=== PATIENT | female | born 1970 | race Caucasian/White ===

== ENCOUNTER 2017-01-23 09:16 | Observation (INO) | payer BC ==
[2017-01-23] MEDS ORDERED: ASPIRIN 81 MG CHEW PO STA (09:33)
[2017-01-23] MEDS ORDERED: NITROGLYCERIN SL TABS 0.4 MG TAB SUBLINGUAL STA (09:33)
--- NOTE | 2017-01-23 09:37 | ED ---
Chest Pain HPI - General Chief Complaint: Chest Pain Stated Complaint: Chest pressure Time Seen by Provider: 01/23/17 09:22 Source: patient, RN/MD, RN notes reviewed, old records reviewed Mode of arrival: ambulatory Limitations: no limitations - History of Present Illness Initial Comments: This is a 46-year-old female with a history of appendectomy and hysterectomy who is also a one half pack a day smoker who presents with complaints of left- sided chest pain radiates from her back of her neck. States it feels tight pressure-like currently is 5/10 severity was as severe as 8/10. It started this morning around 07:30- 07:45. She also relates that she was admitted to [facility] 3 days ago for evaluation for chest pain which she states he never came to conclusion and actually did not tolerate anything she saw her doctor yesterday EKG was done and [facility] was inconclusive. She is here today for further evaluation. She did no fevers chills cough or phlegm production no other symptoms to report. She liters a family history of her dad having some type of heart disease no other family history reported no history of blood clots. MD Complaint: chest pain - Related Data Home Medications Medication Instructions Recorded Confirmed Aspirin 81 mg PO DAILY 01/23/17 01/23/17 Allergies Allergy/AdvReac Type Severity Reaction Status Date / Time Quinolones Allergy Anaphylaxis Verified 01/23/17 09:54 Review of Systems ROS Statement: Those systems with pertinent positive or pertinent negative responses have been documented in the HPI. ROS Other: All systems not noted in ROS Statement are negative. EKG Findings - EKG Results: EKG: interpreted by ERMD, normal axis, normal QRS, normal ST/T, no acute changes (EKG shows a normal sinus rhythm of 70 to a SD interval of 150 to QRS of 76 daily since QTC of 376/411. ST-T wave changes systems appear to be a normal EKG.) Past Medical History Past Medical History: Chest Pain / Angina Additional Past Medical History / Comment(s): hypoglycemia History of Any Multi-Drug Resistant Organisms: None Reported Past Surgical History: Appendectomy, Hysterectomy Past Psychological History: Anxiety, Depression Smoking Status: Current every day smoker Past Alcohol Use History: Occasional Past Drug Use History: None Reported General Exam - General Exam Comments Initial Comments: This is a well-developed well-nourished awake alert oriented 3 female Limitations: no limitations General appearance: alert, anxious Head exam: Present: atraumatic, normocephalic, normal inspection Eye exam: Present: normal appearance, PERRL, EOMI. Absent: scleral icterus, conjunctival injection, periorbital swelling ENT exam: Present: normal exam, mucous membranes moist Neck exam: Present: normal inspection. Absent: tenderness, meningismus, lymphadenopathy Respiratory exam: Present: normal lung sounds bilaterally. Absent: respiratory distress, wheezes, rales, rhonchi, stridor Cardiovascular Exam: Present: regular rate, normal rhythm, normal heart sounds. Absent: systolic murmur, diastolic murmur, rubs, gallop, clicks GI/Abdominal exam: Present: soft, normal bowel sounds. Absent: distended, tenderness, guarding, rebound, rigid Extremities exam: Present: normal inspection, full ROM, normal capillary refill. Absent: tenderness, pedal edema, joint swelling, calf tenderness Back exam: Present: normal inspection Neurological exam: Present: alert, oriented X3, CN II-XII intact Psychiatric exam: Present: normal affect, normal mood Skin exam: Present: warm, dry, intact, normal color. Absent: rash Course Vital Signs 01/23/17 01/23/17 09:18 10:19 Temperature 98.1 F Pulse Rate 83 64 Respiratory 20 18 Rate Blood Pressure 126/74 103/66 O2 Sat by Pulse 99 100 Oximetry - Reevaluation(s) Reevaluation #1: 01/23/17 10:08 The patient states she had relief of her pain is down to 1/10 after nitroglycerin and aspirin. She further states that when she was having pain and presented to [facility] she also had associated shortness of breath with it. Chest Pain MDM - MDM I reviewed the xr no acute changes. I did discuss the findings with the pt and her daughter, she will be admitted for further evaluation Disposition Clinical Impression: Unstable angina pectoris, Chest pain Disposition: ADMITTED IP TO THIS HOSP Condition: Stable Referrals: Faye Hartmann MD [Primary Care Provider] - 1-2 days
[2017-01-23 09:56] LABS: Aty Lym Flag Slight; CH 31.3; CHCM 33.7; HCT 44.9 % (34.0-46.0); HDW 2.56; HGB 15.7 gm/dL (11.4-16.0); MCH 32.6 pg (25.0-35.0); MCHC 34.9 g/dL (31.0-37.0); MCV 93.3 fL (80.0-100.0); Mean Platelet Volume 7.7; RBC 4.81 m/uL (3.80-5.40); RDW 12.3 % (11.5-15.5); WBC 9.4 k/uL (3.8-10.6); WBC (Perox) 9.27
--- NOTE | 2017-01-23 10:00 | XR ---
EXAMINATION TYPE: XR chest 2V DATE OF EXAM: 01/23/2017 COMPARISON: 06/01/2016 HISTORY: 46-year-old female with chest pain TECHNIQUE: PA and lateral views FINDINGS: The cardiomediastinal silhouette, aorta, and pulmonary vasculature are within normal limits. Redemons trated biapical pleural parenchymal scarring. Strandy areas of atelectasis and scarring in the lower lungs. No consolidation or pleural effusion. IMPRESSION: Chronic changes without acute cardiopulmonary process.
[2017-01-23] MEDS ORDERED: NITROGLYCERIN OINT 1 INCH/GM PACKET TOPICAL STA (10:04)
[2017-01-23 10:08] LABS: ALT 27 U/L (9-52); AST 23 U/L (14-36); Alkaline Phosphatase 84 U/L (38-126); Anion Gap 11 mmol/L; Blood Urea Nitrogen 11 mg/dL (7-17); Calcium 10.2 mg/dL (8.4-10.2); Carbon Dioxide 27 mmol/L (22-30); Chloride 106 mmol/L (98-107); Glucose 91 mg/dL (74-99); Magnesium 1.9 mg/dL (1.6-2.3); Non-African American GFR(MDRD) >60 (>60 ml/min/1.73 sqM); Potassium 5.1 mmol/L (3.5-5.1); Sodium 144 mmol/L (137-145); Total Bilirubin 0.7 mg/dL (0.2-1.3); Total Protein 7.6 g/dL (6.3-8.2)
[2017-01-23 10:10] LABS: INR 1.1 (<1.1); Partial Thromboplastin Time 23.8 sec (22.0-30.0); Prothrombin Time 10.8 sec (9.0-12.0)
[2017-01-23 10:20] LABS: Creatine Kinase 34 U/L (30-135)
[2017-01-23 10:25] LABS: Add Differential Manual Differential
[2017-01-23 10:27] LABS: Manual Review Performed; Nucleated Red Blood Cells 0 /100 WBC (0-0); Total Cells Counted 100
[2017-01-23 10:28] LABS: RBC Morphology Normal
[2017-01-23 10:34] LABS: Creatine Kinase MB 0.2 ng/mL (0.0-2.4); Troponin I <0.012 ng/mL (0.000-0.034)
[2017-01-23] MEDS ORDERED: HEPARIN SODIUM,PORCINE 5,000 UNIT/ML 1 ML VIAL IV ONE (11:12)
[2017-01-23] MEDS ORDERED: NITROGLYCERIN SL TABS 0.4 MG TAB SUBLINGUAL PRN (11:12)
[2017-01-23] MEDS ORDERED: NICOTINE 14MG/24HR PATCH TRANSDERM STA (11:15)
[2017-01-23] MEDS ORDERED: HEPARIN SODIUM,PORCINE/D5W PMX 25,000 UNIT in DEXTROSE/WATER 1 500ML.BAG IV SCH (11:15)
[2017-01-23] MEDS: SODIUM CHLORIDE 0.9% 1,000 ML IV SCH (11:37)
[2017-01-23 17:05] LABS: Creatine Kinase 38 U/L (30-135)
[2017-01-23 17:18] LABS: Creatine Kinase MB 0.2 ng/mL (0.0-2.4); Troponin I <0.012 ng/mL (0.000-0.034)
[2017-01-23] MEDS ORDERED: ACETAMINOPHEN TAB 500 MG TAB PO PRN (17:44)
[2017-01-23] MEDS: NITROGLYCERIN OINT 1 INCH/GM PACKET TOPICAL SCH (17:53)
[2017-01-23 21:32] LABS: Creatine Kinase 83 U/L (30-135)
[2017-01-23 21:46] LABS: Creatine Kinase MB 0.9 ng/mL (0.0-2.4); Troponin I <0.012 ng/mL (0.000-0.034)
[2017-01-24] MEDS: NITROGLYCERIN OINT 1 INCH/GM PACKET TOPICAL SCH ×2 (03:33→06:35)
[2017-01-24 06:46] LABS: Cholesterol 191 mg/dL (<200); HDL Cholesterol 72 mg/dL (40-60); Triglycerides 88 mg/dL (<150)
[2017-01-24 07:40] VITALS: RESP 16
[2017-01-24] MEDS ORDERED: ASPIRIN 325 MG TAB PO SCH (09:00)
--- NOTE | 2017-01-24 09:19 | P.CRDCN ---
History of Present Illness Consult date: 01/24/17 Requesting physician: Saleem Nunez Consult reason: chest pain Chief complaint: Chest pain History of present illness: This is a pleasant 46-year-old female with no prior documented history of hypertension, no diabetes, no hyperlipidemia, she does smoke one half to one pack of cigarettes per day, rare EtOH use. Patient presents to the hospital with symptoms of midsternal left-sided chest pressure with radiation to the back, mild associated shortness of breath. Symptoms initially started on Sunday evening, lasted most of the night Sunday. She states that she went to [facility], EKG and blood tests were performed there which were reported to be normal, she was not happy with the care there and signed herself out AGAINST MEDICAL ADVICE. She did have one further episode of chest discomfort similar to that of Sunday night and went to the urgent care. She was referred here for further evaluation. EKG on presentation here showed a normal sinus rhythm with nonspecific ST-T wave changes . Subsequent EKG performed this morning shows normal sinus rhythm with nonspecific ST-T wave changes. Chest x-ray reveals chronic changes without any acute cardiopulmonary process. CBC is normal, d-dimer negative. Potassium 5.1, BUN 11, creatinine 0.7. Troponins have been negative 3. Cholesterol 191, LDL 101, HDL 72, and glycerides 88. Blood pressure 96/40 with a heart rate in the 60s. She is afebrile. At the time of my examination this morning, patient denies any chest pain or difficulty in breathing. She is currently on aspirin and IV heparin along with Nitropaste and a nicotine patch. Past Medical History Past Medical History: Chest Pain / Angina, GERD/Reflux Additional Past Medical History / Comment(s): Pt states she was hospitalized at [place] 3 days ago with chest pain, hypoglycemia, constipation, hemorrhoids History of Any Multi-Drug Resistant Organisms: None Reported Past Surgical History: Appendectomy, Hysterectomy Additional Past Surgical History / Comment(s): D&C, EGD with bx Past Anesthesia/Blood Transfusion Reactions: No Reported Reaction Smoking Status: Current every day smoker - Past Family History Mother Family Medical History: Cancer Additional Family Medical History / Comment(s): Mother of pancreatic cancer at the age of 54yrs. Father Family Medical History: AFIB, Coronary Artery Disease (CAD) Additional Family Medical History / Comment(s): Father is 76yrs old. Medications and Allergies Home Medications Medication Instructions Recorded Confirmed Type Aspirin 81 mg PO DAILY 01/23/17 01/23/17 History Allergies Allergy/AdvReac Type Severity Reaction Status Date / Time Quinolones Allergy Anaphylaxis Verified 01/23/17 09:54 Physical Exam Vitals: Vital Signs Temp Pulse Pulse Resp BP BP Pulse Ox 01/24/17 08:00 61 16 01/24/17 07:39 97.8 F 61 16 96/49 96 01/24/17 07:33 98 01/24/17 04:48 97.9 F 63 18 103/56 98 01/24/17 04:00 53 L 18 01/24/17 00:00 98 F 63 18 105/56 97 01/23/17 20:59 95/53 01/23/17 20:00 98 F 65 18 86/51 96 01/23/17 16:30 16 01/23/17 15:08 97.7 F 65 16 121/77 99 01/23/17 13:19 97.5 F L 01/23/17 13:00 65 18 105/60 100 01/23/17 12:00 55 L 18 111/65 100 01/23/17 11:00 59 L 18 108/62 99 01/23/17 10:19 64 18 103/66 100 01/23/17 09:18 98.1 F 83 20 126/74 99 Intake and Output 01/23/17 01/24/17 01/24/17 22:59 06:59 14:59 Other: Voiding Method Toilet # Voids 1 Weight 52.163 kg PHYSICAL EXAMINATION: HEENT: Head is atraumatic, normocephalic. Pupils equal, round. Neck is supple. There is no elevated jugular venous pressure. HEART EXAMINATION: Heart S1, S2 normal. No murmur or gallop heard. CHEST EXAMINATION: Lungs are clear to auscultation and precussion. No chest wall tenderness is noted on palpation or with deep breathing. ABDOMEN: Soft, nontender. Bowel sounds are heard. No organomegaly noted. EXTREMITIES: 2+ peripheral pulses with no evidence of peripheral edema and no calf tenderness noted. NEUROLOGIC patient is awake, alert and oriented -3. . Results 01/23/17 09:30 01/23/17 09:30 Cardiac Enzymes 01/23/17 01/23/17 01/23/17 Range/Units 09:30 09:30 16:34 AST 23 (14-36) U/L CK-MB (CK-2) 0.2 0.2 (0.0-2.4) ng/mL Troponin I <0.012 <0.012 (0.000-0.034) ng/mL 01/23/17 Range/Units 21:01 AST (14-36) U/L CK-MB (CK-2) 0.9 (0.0-2.4) ng/mL Troponin I <0.012 (0.000-0.034) ng/mL Coagulation 01/23/17 01/23/17 01/24/17 Range/Units 09:30 16:34 06:08 PT 10.8 (9.0-12.0) sec APTT 23.8 51.9 H 39.4 H (22.0-30.0) sec Lipids 01/24/17 Range/Units 06:08 Triglycerides 88 (<150) mg/dL Cholesterol 191 (<200) mg/dL HDL Cholesterol 72 H (40-60) mg/dL CBC 01/23/17 Range/Units 09:30 WBC 9.4 (3.8-10.6) k/uL RBC 4.81 (3.80-5.40) m/uL Hgb 15.7 (11.4-16.0) gm/dL Hct 44.9 (34.0-46.0) % Plt Count 350 (150-450) k/uL Comprehensive Metabolic Panel 01/23/17 Range/Units 09:30 Sodium 144 (137-145) mmol/L Potassium 5.1 (3.5-5.1) mmol/L Chloride 106 (98-107) mmol/L Carbon Dioxide 27 (22-30) mmol/L BUN 11 (7-17) mg/dL Creatinine 0.79 (0.52-1.04) mg/dL Glucose 91 (74-99) mg/dL Calcium 10.2 (8.4-10.2) mg/dL AST 23 (14-36) U/L ALT 27 (9-52) U/L Alkaline Phosphatase 84 (38-126) U/L Total Protein 7.6 (6.3-8.2) g/dL Albumin 4.8 (3.5-5.0) g/dL Current Medications Generic Name Dose Route Start Last Admin Trade Name Freq PRN Reason Stop Dose Admin Acetaminophen 1,000 mg 01/23/17 17:44 01/23/17 17:50 Tylenol Tab PO 1,000 mg Q6HR PRN Administration Fever and/ or Pain Aspirin 325 mg 01/24/17 09:00 Aspirin PO DAILY [facility] Heparin Sodium/Dextrose 25,000 500 mls @ 12.51 mls/hr 01/23/17 11:15 11:40 unit/ IV Solution IV 12 units/kg/hr .Q24H [facility] 12.51 mls/hr Protocol Administration 12 UNITS/KG/HR Sodium Chloride 1,000 mls @ 20 mls/hr 01/23/17 11:15 01/23/17 11:37 Saline 0.9% IV 20 mls/hr .Q24H [facility] Administration Nitroglycerin 1 inch 01/23/17 17:00 01/24/17 06:35 Nitro-Bid Oint TOPICAL Not Given Q6HR [facility] Nitroglycerin 0.4 mg 01/23/17 11:12 Nitrostat SUBLINGUAL Q5M PRN Chest Pain Intake and Output 01/23/17 01/24/17 01/24/17 22:59 06:59 14:59 Other: Voiding Method Toilet # Voids 1 Weight 52.163 kg 01/23/17 09:30 01/23/17 09:30 EKG Interpretations (text) EKG shows a normal sinus rhythm with nonspecific ST-T wave changes Assessment and Plan Plan: Assessment and plan #1 chest pain, atypical for acute coronary syndrome. Troponins negative 3. EKGs show normal sinus rhythm with nonspecific ST-T wave changes #2 nicotine dependence #3 cardiac risk factors negative for hypertension, no diabetes, no hyperlipidemia, no strong family history of premature coronary artery disease. Plan We will discontinue IV heparin and Nitropaste. We'll schedule the patient for a stress echocardiographic study today. We will also obtain an echocardiogram with Doppler study. If the echo and stress test are normal, patient has been advised that she may need to undergo ultrasound of the abdomen as an outpatient. Further recommendations will be based on these findings and the patient's clinical course. DNP note has been reviewed, I agree with a documented findings and plan of care. Patient was seen and examined.
[2017-01-24] MEDS: SODIUM CHLORIDE 0.9% 1,000 ML IV SCH (11:41)
[2017-01-24 11:49] VITALS: BP 113/62; PULSE 84; TEMP 98
--- NOTE | 2017-01-24 14:13 | PCN ---
DATE OF SERVICE: 01/24/2017 STRESS ECHOCARDIOGRAM INDICATION: Chest pain. BASELINE HEART RATE: 77 BASELINE BLOOD PRESSURE: 101/65 MAXIMUM HEART RATE: 150 MAXIMUM BLOOD PRESSURE: 130/58 85% MPHR: 149 100% MPHR: 175 METS: 9.0 MAXIMUM STAGE REACHED: 3 TOTAL EXERCISE TIME: 8:00 Baseline EKG shows sinus rhythm, normal axis, normal intervals. Patient exercised on Luis Carlos protocol for a total of 8 minutes achieved 9 METS, 85% of predicted maximum heart rate without chest pain or diagnostic ST-segment depression. Baseline echo shows normal left ventricular size wall motion and systolic function. Post-exercise, there is normal hyperdynamic response to all segments of myocardium noted. CONCLUSION: 1. Above average exercise tolerance. 2. Negative stress test by EKG criteria. 3. Negative stress echo. MTDD
--- NOTE | 2017-01-25 11:00 | ECHOF ---
Referral Reason:chest pain MEASUREMENTS -------- HEIGHT: 170.2 cm WEIGHT: 52.2 kg BP: RVIDd: 2.1 cm (< 3.3) IVSd: 0.6 cm (0.6 - 1.1) LVIDd: 4.8 cm (3.9 - 5.3) LVPWd: 0.6 cm (0.6 - 1.1) IVSs: 0.8 cm LVIDs: 3.9 cm LVPWs: 0.6 cm LA Diam: 2.0 cm (2.7 - 3.8) Ao Diam: 2.3 cm (2.0 - 3.7) AV Cusp: 1.2 cm (1.5 - 2.6) LA Diam: 2.6 cm (2.7 - 3.8) MV E Yoni: 0.84 m/s MV DecT: 202 ms MV A Yoni: 0.56 m/s MV E/A Ratio: 1.51 FINDINGS -------- Sinus rhythm. This was a technically good study. LV size, wall thickness and systolic function are normal, with an EF greater than 55%. The right ventricle is normal in size. The left atrial size is normal. The right atrial size is normal. There is mild aortic valve sclerosis. There is no evidence of aortic regurgitation. Mild mitral annular calcification present. Mild mitral regurgitation is present. Mild tricuspid regurgitation present. There is no evidence of pulmonary hypertension. The right ventricular systolic pressure, as measured by Doppler, is {RVSP}. There is no pulmonic regurgitation present. The aortic root size is normal. There is no pericardial effusion. CONCLUSIONS -------- 1. LV size, wall thickness and systolic function are normal, with an EF greater than 55%. 2. There is mild aortic valve sclerosis. 3. Mild mitral annular calcification present. 4. Mild tricuspid regurgitation present. 5. There is no evidence of pulmonary hypertension. 6. The right ventricular systolic pressure, as measured by Doppler, is {RVSP}. 7. There is no pulmonic regurgitation present. 8. The aortic root size is normal. 9. There is no pericardial effusion. AUTO MACHINIST: Mona Esquivel RDCS
--- NOTE | 2017-01-25 20:37 | HP ---
CHIEF COMPLAINT: Shortness of breath. HISTORY OF PRESENT ILLNESS: This 46-year-old woman with a past medical history of multiple medical problems, including chest pain, GERD, history of hyperglycemia, constipation, appendectomy, history of anxiety, being followed by Dr. Hartmann in the outpatient setting, was admitted to [facility] with complaints of chest pain and shortness of breath. The patient apparently was symptomatic for the past several days. The patient had a recent admission at [facility], as mentioned earlier. The patient also had other symptoms, including nausea, dizziness and weakness. The pain is about 5/10 in intensity and goes up to 8/10 in intensity, recurrent in nature, radiating to the left arm as well as back. The patient came to [facility] and was admitted for further evaluation and treatment. There is no history of any fever , rigor, chills. No history of headache, loss of consciousness, seizures. Apparently the [facility] workup was inconclusive. The results are not available at this time. Her CBC, BMP and D-dimer are negative. PAST MEDICAL HISTORY: 1. Chest pain, angina. 2. History of GERD. 3. History of appendectomy. 4. Hysterectomy. 5. Anxiety not otherwise specified. MEDICATIONS: Aspirin 81 mg daily. ALLERGIES: QUINOLONES. FAMILY HISTORY: History of cancer in the family. SOCIAL HISTORY: History of smoking on a regular basis. Occasional alcohol intake. REVIEW OF SYSTEMS: ENT: No diminished vision. No diminished hearing. CARDIOVASCULAR SYSTEM: As mentioned earlier. RESPIRATORY SYSTEM: As mentioned earlier. GI: No nausea, vomiting. : No dysuria, retention. NERVOUS SYSTEM: No numbness, weakness. ALLERGY/IMMUNOLOGY: No asthma, hayfever. MUSCULOSKELETAL: As mentioned earlier. HEMATOLOGY/ONCOLOGY: No history of anemia. ENDOCRINE: No history of diabetes, hypothyroidism. CONSTITUTIONAL: As mentioned earlier. DERMATOLOGY: Negative. RHEUMATOLOGY: Negative. PSYCHIATRY: As mentioned earlier. PHYSICAL EXAMINATION: Patient is alert and oriented x3. Pulse 65, blood pressure 121/77, respiratory rate 16, temperature 97.7, pulse ox 99% on 2 L. HEENT: Conjunctivae normal. Oral mucosa moist. NECK: No jugular venous distention. No carotid bruit. No lymph node enlargement. CARDIOVASCULAR: S1, S2 muffled. RESPIRATORY: Breath sounds diminished at the bases. No rhonchi. No crackles. ABDOMEN: Soft, non-tender. No mass palpable. LEGS: No edema. No swelling. NERVOUS SYSTEM: Higher functions are mentioned earlier. Moves all 4 limbs. No focal motor or sensory deficit. LYMPHATICS: No lymph node palpable in neck, axillae or groin. SKIN: No ulcer, rash, bleeding. LABS: CBC, BMP within normal limits. Troponins are negative. D-dimer is negative. EKG: Copy available in the chart shows normal sinus rhythm, minimal ( ) of the R-waves on the EKG. Chest x-ray shows chronic changes. ASSESSMENT: 1. Chest pain; possible unstable angina. 2. Rule out musculoskeletal syndrome. 3. History of gastroesophageal reflux disease. 4. History of hypoglycemia. 5. History of constipation. 6. History of appendectomy. 7. History of anxiety not otherwise specified. 8. History of nicotine dependence. RECOMMENDATIONS AND DISCUSSION: In this 46-year-old woman who presented with multiple complex medical issues, we will monitor the patient closely, continue the current medications, continue with symptomatic treatment. Rule out myocardial infarction. Keep the patient NPO at midnight. Possible stress test by Cardiology. Guarded prognosis. Further recommendations to follow. MTDD
--- NOTE | 2017-01-27 13:37 | DS ---
FINAL DIAGNOSES: 1. Chest pain, possible musculoskeletal. 2. Negative stress test. 3. Nicotine dependence. 4. Heparin monitoring. DISCHARGE DISPOSITION: The patient will be discharged in stable condition with guarded prognosis. HISTORY OF PRESENT ILLNESS: This is a 45-year-old woman with , was admitted with chest pain and back pain. The patient had a cardiac stress test. Cardiology saw the patient. Myocardial infarction was ruled out. The stress test is negative for any reversible ischemia. On exam, alert and oriented x3. CARDIOVASCULAR: S1, S2. ABDOMEN: Soft, nontender. The patient discharged stable condition. Follow cardiac diet. Follow up with Dr. Hartmann in 2-3 days. Follow up with Dr. Tellez as advised. Medications are Ecotrin 81 mg p.o. daily. The patient was discharged in a stable condition with guarded prognosis. MTDD
== END 2017-01-24 15:19 | disposition home or self-care (01) ==
LOC: EC 09:16 → 3OBS 11:12
PROVIDERS: ADMIT Internal Medicine; ATTEND Internal Medicine
DX: R07.89 Other chest pain (principal); M54.9 Dorsalgia, unspecified; K21.9 Gastro-esophageal reflux disease without esophagitis; F41.9 Anxiety disorder, unspecified; F32.9 Major depressive disorder, single episode, unspecified; F17.200 Nicotine dependence, unspecified, uncomplicated; E16.2 Hypoglycemia, unspecified; R06.02 Shortness of breath; Z79.82 Long term (current) use of aspirin; Z82.49 Family history of ischemic heart disease and other diseases of the circulatory system; Z90.710 Acquired absence of both cervix and uterus; Z88.8 Allergy status to other drugs, medicaments and biological substances; Z80.0 Family history of malignant neoplasm of digestive organs
CPT/HCPCS: 96376 ×2; 96365 ×2; 96366 ×4; 99285 ×2; 36415; 94760; 93005; 93017; 93306; 93350; 85379; 80061; 80053; 82550; 82553; 83735; 84484; 85025; 85610; 85730 ×2; 71020; G0378 ×2; S4990; J1644 ×2

== ENCOUNTER → 2017-06-27 | Outpatient (CLI) | payer BC ==
--- NOTE | 2017-06-27 12:00 | XR ---
EXAMINATION TYPE: XR chest 2V DATE OF EXAM: 06/27/2017 COMPARISON: Chest x-ray May 31, 2017. HISTORY: History of tobacco use with persistent cough and cold for 3 months. TECHNIQUE: Frontal and lateral views of the chest are obtained. FINDINGS: There is biapical pleural/parenchymal scarring redemonstrated. There is no focal air space opacity, pleural effusion, or pneumothorax seen. The cardiac silhouette size is within normal limit s. Slight underlying scoliotic curvature in the thoracic spine remains present. IMPRESSION: Chronic changes without suspicious acute infiltrate..
== END | disposition home or self-care (01) ==
LOC: RADXRYALE 11:22
PROVIDERS: ATTEND Pediatrics
DX: R05 Cough (principal); R91.8 Other nonspecific abnormal finding of lung field
CPT/HCPCS: 71020

== ENCOUNTER 2017-10-27 20:16 | Emergency (ER) | payer BC ==
[2017-10-27] MEDS ORDERED: ALBUTEROL NEBULIZED 2.5 MG/3 ML INHALATION STA (21:26)
[2017-10-27] MEDS ORDERED: ONDANSETRON 4 MG/2 ML VIAL IVP STA (21:26)
[2017-10-27] MEDS ORDERED: SODIUM CHLORIDE 0.9% 1,000 ML IV ONE (21:26)
--- NOTE | 2017-10-27 21:30 | ED ---
General Adult HPI - General Chief complaint: Upper Respiratory Infection Stated complaint: Flu like symptoms Time Seen by Provider: 10/27/17 20:56 Source: patient Mode of arrival: ambulatory Limitations: no limitations - History of Present Illness Initial comments: She is a 47-year-old woman who presents to be evaluated for constellation of symptoms. She states that starting about 4 days ago she began to have some nasal congestion and then developed a cough. For the past 2 days she has also been having myalgias and feeling like she has been hot and cold. She presents today because she also has had the onset of nausea and has not been eating or drinking anything for the past day. She states that she has been trying to treat the symptoms with NyQuil, DayQuil, Tylenol and ibuprofen without getting much relief from the symptoms. In addition she had stayed home from work for day last week. Onset/Timin -: days(s) Quality: aching Consistency: constant Improves with: none Worsens with: none Associated Symptoms: cough, fever/chills, loss of appetite, nausea/vomiting, other (Myalgias) Treatments Prior to Arrival: NSAID, other - Related Data Home Medications Medication Instructions Recorded Confirmed Aspirin 81 mg PO DAILY 01/23/17 01/23/17 Previous Rx's Medication Instructions Recorded Albuterol Inhaler [Ventolin Hfa 1 - 2 puff INHALATION Q6HR PRN #1 10/27/17 Inhaler] inhaler Ondansetron Odt [Zofran ODT] 4 mg PO Q8HR PRN #10 tab 10/27/17 predniSONE 60 mg PO DAILY #30 tab 10/27/17 Allergies Allergy/AdvReac Type Severity Reaction Status Date / Time Quinolones Allergy Anaphylaxis Verified 10/27/17 20:41 Review of Systems ROS Statement: Those systems with pertinent positive or pertinent negative responses have been documented in the HPI. ROS Other: All systems not noted in ROS Statement are negative. Constitutional: Reports: fever, chills Eyes: Denies: eye pain, vision change ENT: Reports: congestion Respiratory: Reports: cough. Denies: dyspnea, hemoptysis Cardiovascular: Denies: chest pain, palpitations, edema Gastrointestinal: Reports: nausea. Denies: abdominal pain, vomiting, diarrhea, melena, hematochezia Genitourinary: Denies: dysuria, hematuria Musculoskeletal: Reports: myalgia. Denies: back pain Skin: Denies: rash Neurological: Denies: headache, weakness, numbness Past Medical History Past Medical History: Chest Pain / Angina, GERD/Reflux Additional Past Medical History / Comment(s): Pt states she was hospitalized at [facility] 3 days ago with chest pain, hypoglycemia, constipation, hemorrhoids History of Any Multi-Drug Resistant Organisms: None Reported Past Surgical History: Appendectomy, Hysterectomy Additional Past Surgical History / Comment(s): D&C, EGD with bx Past Anesthesia/Blood Transfusion Reactions: No Reported Reaction Past Psychological History: Anxiety Smoking Status: Current every day smoker Past Alcohol Use History: Rare Past Drug Use History: None Reported - Past Family History Mother Family Medical History: Cancer Additional Family Medical History / Comment(s): Mother of pancreatic cancer at the age of 54yrs. Father Family Medical History: AFIB, Coronary Artery Disease (CAD) Additional Family Medical History / Comment(s): Father is 76yrs old. General Exam Limitations: no limitations General appearance: alert, in no apparent distress Head exam: Present: atraumatic, normocephalic Eye exam: Present: normal appearance. Absent: scleral icterus, conjunctival injection ENT exam: Present: normal oropharynx, mucous membranes dry Neck exam: Present: normal inspection, full ROM. Absent: meningismus Respiratory exam: Present: wheezes. Absent: respiratory distress, rales, rhonchi, stridor Cardiovascular Exam: Present: regular rate, normal rhythm, normal heart sounds. Absent: systolic murmur, diastolic murmur, rubs, gallop GI/Abdominal exam: Present: soft. Absent: distended, tenderness, guarding, rebound, mass, pulsatile mass Extremities exam: Present: normal inspection, normal capillary refill. Absent: pedal edema, calf tenderness Back exam: Present: normal inspection. Absent: CVA tenderness (R), CVA tenderness (L) Neurological exam: Present: alert Skin exam: Present: warm, dry, intact, normal color. Absent: rash Course Vital Signs 10/27/17 10/27/17 10/27/17 20:35 22:02 23:21 Temperature 99.4 F 100.1 F H Pulse Rate 92 92 85 Respiratory 18 16 18 Rate Blood Pressure 111/55 114/58 O2 Sat by Pulse 96 93 L Oximetry Medical Decision Making - Lab Data Result diagrams: 10/27/17 21:47 10/27/17 21:47 Lab Results 10/27/17 10/27/17 10/27/17 Range/Units 21:47 21:47 21:47 WBC 13.6 H (3.8-10.6) k/uL RBC 4.99 (3.80-5.40) m/uL Hgb 14.8 (11.4-16.0) gm/dL Hct 44.1 (34.0-46.0) % MCV 88.4 (80.0-100.0) fL MCH 29.8 (25.0-35.0) pg MCHC 33.7 (31.0-37.0) g/dL RDW 12.4 (11.5-15.5) % Plt Count 333 (150-450) k/uL Neutrophils % 75 % Lymphocytes % 11 % Monocytes % 9 % Eosinophils % 2 % Basophils % 1 % Neutrophils # 10.2 H (1.3-7.7) k/uL Lymphocytes # 1.5 (1.0-4.8) k/uL Monocytes # 1.2 H (0-1.0) k/uL Eosinophils # 0.2 (0-0.7) k/uL Basophils # 0.1 (0-0.2) k/uL Sodium 142 (137-145) mmol/L Potassium 4.5 (3.5-5.1) mmol/L Chloride 105 (98-107) mmol/L Carbon Dioxide 23 (22-30) mmol/L Anion Gap 14 mmol/L BUN 13 (7-17) mg/dL Creatinine 0.69 (0.52-1.04) mg/dL Est GFR (CKD-EPI)AfAm >90 (>60 ml/min/1.73 sqM) Est GFR (CKD-EPI)NonAf >90 (>60 ml/min/1.73 sqM) Glucose 108 H (74-99) mg/dL Calcium 10.1 (8.4-10.2) mg/dL Total Bilirubin 0.5 (0.2-1.3) mg/dL AST 23 (14-36) U/L ALT 24 (9-52) U/L Alkaline Phosphatase 104 (38-126) U/L Total Protein 7.2 (6.3-8.2) g/dL Albumin 4.3 (3.5-5.0) g/dL Urine Color Urine Appearance (Clear) Urine pH (5.0-8.0) Ur Specific [place] (1.001-1.035) Urine Protein (Negative) Urine Glucose (UA) (Negative) Urine Ketones (Negative) Urine Blood (Negative) Urine Nitrite (Negative) Urine Bilirubin (Negative) Urine Urobilinogen (<2.0) mg/dL Ur Leukocyte Esterase (Negative) Urine RBC (0-5) /hpf Urine WBC (0-5) /hpf Ur Squamous Epith Cells (0-4) /hpf Urine Mucus (None) /hpf Urine HCG, Qual (Not Detectd) Influenza Type A RNA Not Detected (Not Detectd) Influenza Type B (PCR) Not Detected (Not Detectd) 10/27/17 10/27/17 Range/Units 21:47 21:47 WBC (3.8-10.6) k/uL RBC (3.80-5.40) m/uL Hgb (11.4-16.0) gm/dL Hct (34.0-46.0) % MCV (80.0-100.0) fL MCH (25.0-35.0) pg MCHC (31.0-37.0) g/dL RDW (11.5-15.5) % Plt Count (150-450) k/uL Neutrophils % % Lymphocytes % % Monocytes % % Eosinophils % % Basophils % % Neutrophils # (1.3-7.7) k/uL Lymphocytes # (1.0-4.8) k/uL Monocytes # (0-1.0) k/uL Eosinophils # (0-0.7) k/uL Basophils # (0-0.2) k/uL Sodium (137-145) mmol/L Potassium (3.5-5.1) mmol/L Chloride (98-107) mmol/L Carbon Dioxide (22-30) mmol/L Anion Gap mmol/L BUN (7-17) mg/dL Creatinine (0.52-1.04) mg/dL Est GFR (CKD-EPI)AfAm (>60 ml/min/1.73 sqM) Est GFR (CKD-EPI)NonAf (>60 ml/min/1.73 sqM) Glucose (74-99) mg/dL Calcium (8.4-10.2) mg/dL Total Bilirubin (0.2-1.3) mg/dL AST (14-36) U/L ALT (9-52) U/L Alkaline Phosphatase (38-126) U/L Total Protein (6.3-8.2) g/dL Albumin (3.5-5.0) g/dL Urine Color Yellow Urine Appearance Cloudy H (Clear) Urine pH 5.5 (5.0-8.0) Ur Specific [place] 1.025 (1.001-1.035) Urine Protein Trace H (Negative) Urine Glucose (UA) Negative (Negative) Urine Ketones 2+ H (Negative) Urine Blood Negative (Negative) Urine Nitrite Negative (Negative) Urine Bilirubin Negative (Negative) Urine Urobilinogen 3.0 (<2.0) mg/dL Ur Leukocyte Esterase Negative (Negative) Urine RBC 2 (0-5) /hpf Urine WBC 2 (0-5) /hpf Ur Squamous Epith Cells 15 H (0-4) /hpf Urine Mucus Moderate H (None) /hpf Urine HCG, Qual Not Detected (Not Detectd) Influenza Type A RNA (Not Detectd) Influenza Type B (PCR) (Not Detectd) Disposition Clinical Impression: Bronchitis Disposition: HOME SELF-CARE Condition: Fair Instructions: Acute Bronchitis (ED) Prescriptions: Albuterol Inhaler [Ventolin Hfa Inhaler] 1 - 2 puff INHALATION Q6HR PRN #1 inhaler PRN Reason: Wheezing Ondansetron Odt [Zofran ODT] 4 mg PO Q8HR PRN #10 tab PRN Reason: Nausea predniSONE 60 mg PO DAILY #30 tab Referrals: Faye Hartmann MD [Primary Care Provider] - 1-2 days
[2017-10-27 22:00] LABS: Basophils # (A) 0.1 k/uL (0-0.2); Basophils % (A) 1 %; Eosinophils # (A) 0.2 k/uL (0-0.7); Eosinophils % (A) 2 %; HCT 44.1 % (34.0-46.0); HGB 14.8 gm/dL (11.4-16.0); Lymphocytes # (A) 1.5 k/uL (1.0-4.8); Lymphocytes % (A) 11 %; MCH 29.8 pg (25.0-35.0); MCHC 33.7 g/dL (31.0-37.0); MCV 88.4 fL (80.0-100.0); Mean Platelet Volume 8.5; Monocytes # (A) 1.2 k/uL (0-1.0); Monocytes % (A) 9 %; Neutrophils # (A) 10.2 k/uL (1.3-7.7); Neutrophils % (A) 75 %; Platelet Count 333 k/uL (150-450); RBC 4.99 m/uL (3.80-5.40); RDW 12.4 % (11.5-15.5); WBC 13.6 k/uL (3.8-10.6)
[2017-10-27 22:03] LABS: Appearance,Urine Cloudy (Clear); Bilirubin,Urine Negative (Negative); Blood,Urine Negative (Negative); Color,Urine Yellow; Glucose,Urine (UA) Negative (Negative); Ketones,Urine 2+ (Negative); Leukocyte Esterase,Urine Negative (Negative); Mucus,Urine Moderate /hpf; Nitrite,Urine Negative (Negative); PH, Urine 5.5 (5.0-8.0); Protein,Urine Trace (Negative); RBC,Urine 2 /hpf (0-5); Specific Gravity,Urine 1.025 (1.001-1.035); Squamous Epithelial Cell,Urine 15 /hpf (0-4); WBC,Urine 2 /hpf (0-5)
[2017-10-27 22:11] LABS: ALT 24 U/L (9-52); AST 23 U/L (14-36); Albumin 4.3 g/dL (3.5-5.0); Alkaline Phosphatase 104 U/L (38-126); Anion Gap 14 mmol/L; Blood Urea Nitrogen 13 mg/dL (7-17); Calcium 10.1 mg/dL (8.4-10.2); Carbon Dioxide 23 mmol/L (22-30); Chloride 105 mmol/L (98-107); Glucose 108 mg/dL (74-99); Potassium 4.5 mmol/L (3.5-5.1); Sodium 142 mmol/L (137-145); Total Bilirubin 0.5 mg/dL (0.2-1.3); Total Protein 7.2 g/dL (6.3-8.2)
--- NOTE | 2017-10-27 22:45 | XR ---
EXAMINATION TYPE: XR chest 2V DATE OF EXAM: 10/27/2017 COMPARISON: 01/23/2017 HISTORY: Cough and congestion TECHNIQUE: Frontal and lateral views of the chest are obtained. FINDINGS: Heart and mediastinum are normal. Lungs are clear of consolidation. There is mild pleural thickening at the lung apices. Bony thorax is intact. There is no sign of pleural effusion. IMPRESSION: No active cardiopulmonary disease. No change.
[2017-10-27 23:23] VITALS: BP 114/58; PULSE 85; RESP 18; TEMP 100.1
[2017-10-27] MEDS ORDERED: predniSONE 20 MG TAB PO STA (23:33)
== END 2017-10-27 23:48 | disposition home or self-care (01) ==
LOC: EC 20:16
DX: J40 Bronchitis, not specified as acute or chronic (principal); M79.1 Myalgia; R11.0 Nausea; R60.0 Localized edema; F17.200 Nicotine dependence, unspecified, uncomplicated; Z79.82 Long term (current) use of aspirin; Z88.1 Allergy status to other antibiotic agents
CPT/HCPCS: 99284; 96374; 96361 ×2; 36415; 94640; 80053; 85025; 81001; 81025; 87502; 71046; J2405; J7512

== ENCOUNTER → 2018-04-19 | Outpatient (CLI) | payer BC ==
--- NOTE | 2018-04-19 11:32 | MM ---
Reason for exam: additional evaluation requested from abnormal screening. Last mammogram was performed less than 1 month ago. History: Patient is postmenopausal and has history of other cancer at age 31. Family history of breast cancer in paternal grandmother. Physical Findings: Nurse did not find any significant physical abnormalities on exam. MG Work Up Mamm w CAD RT Spot compression CC, spot compression MLO, and ML view(s) were taken of the right breast. Prior study comparison: April 05, 2018, bilateral MG screening mammo w CAD. February 21, 2016, bilateral MG screening mammo w CAD. Density persists upper outer right breast 5cm from nipple. These results were verbally communicated with the patient and result sheet given to the patient on 04/19/18. ASSESSMENT: Incomplete: need additional imaging evaluation, BI-RAD 0 RECOMMENDATION: Ultrasound of the right breast.
--- NOTE | 2018-04-19 11:37 | USB ---
Reason for exam: additional evaluation requested from abnormal screening. History: Patient is postmenopausal and has history of other cancer at age 31. Family history of breast cancer in paternal grandmother. US Breast Workup Limited RT Right limited breast ultrasound including focal area of concern, retroareolar and axilla demonstrates a 0.4 x 0.2 x 0.4cm lesion too small to characterize at 11 o'clock. Given the persistence on nodule on mammography stereotactic core biopsy is recommended. These results were verbally communicated with the patient and result sheet given to the patient on 04/19/18. ASSESSMENT: Suspicious, BI-RAD 4 RECOMMENDATION: Stereotactic core biopsy of the right breast. Called Dr. Hartmann with mammographic findings and has scheduled an appointment for the patient for 05/23/18 at 11:[address] Garsia. Biopsy scheduled for 05/09/18 at 10:00. PRELIMINARY REPORT CALLED AND FAXED TO DR. GARSIA ON 04/19/18.
== END | disposition home or self-care (01) ==
LOC: RADMAMWWP 09:59
PROVIDERS: ATTEND Internal Medicine
DX: R92.8 Other abnormal and inconclusive findings on diagnostic imaging of breast (principal)
CPT/HCPCS: 77065

== ENCOUNTER → 2018-05-09 | Day surgery (SDC) | payer BC ==
[2018-05-09 09:09] VITALS: BP 100/70; PULSE 90; RESP 16; TEMP 97.8; BMI 18.9
--- NOTE | 2018-05-09 11:37 | MM ---
EXAMINATION TYPE: MG discontinued stereo core RT DATE OF EXAM: 05/09/2018 COMPARISON: Diagnostic workup April 19, 2018 and older studies. CLINICAL HISTORY: Prior abnormal mammogram. TECHNIQUE: Stereotactic guided core biopsy of right breast. FINDINGS: The procedure of stereotactic guided core biopsy was explained to the patient. Benefits, a lternatives, and risks were discussed. An informed consent was then obtained. Reviewing images before scan shows dense tissue, not convincing of definitive lesion. Localization wa s attempted utilizing both craniocaudal and lateral compression. No distinct lesion to warrant sampli ng was identified at this time. Findings correlate with negative ultrasound from April 19. Patient was acceptable to canceled procedure and short-term follow-up. IMPRESSION: UNSUCCESSFUL STEREOTACTIC GUIDED CORE BIOPSY OF AREA OF CONCERN IN THE RIGHT BREAST. BI-RADS 3 PROBABLE BENIGN FINDINGS. RECOMMENDATION: PRECAUTIONARY 6 MONTH FOLLOW-UP DIAGNOSTIC RIGHT BREAST MAMMOGRAM.
== END ==
LOC: RADMAMWWP 08:55
PROVIDERS: ATTEND Surgery
DX: Z53.8 Procedure and treatment not carried out for other reasons (principal); R92.8 Other abnormal and inconclusive findings on diagnostic imaging of breast; Z88.1 Allergy status to other antibiotic agents

== ENCOUNTER 2018-06-02 02:39 | Emergency (ER) | payer BC ==
[2018-06-02 02:45] VITALS: RESP 18
[2018-06-02] MEDS ORDERED: ONDANSETRON 4 MG/2 ML VIAL IVP STA (03:04)
[2018-06-02] MEDS ORDERED: KETOROLAC 30 MG/ML 1 ML VIAL IVP STA (03:04)
[2018-06-02 03:23] LABS: ALT 29 U/L (9-52); AST 19 U/L (14-36); Albumin 4.3 g/dL (3.5-5.0); Alkaline Phosphatase 76 U/L (38-126); Amylase 50 U/L (30-110); Anion Gap 8 mmol/L; Blood Urea Nitrogen 16 mg/dL (7-17); Calcium 9.9 mg/dL (8.4-10.2); Carbon Dioxide 27 mmol/L (22-30); Chloride 106 mmol/L (98-107); Glucose 108 mg/dL (74-99); Lipase 108 U/L (23-300); Sodium 141 mmol/L (137-145); Total Bilirubin 0.4 mg/dL (0.2-1.3)
[2018-06-02 03:24] LABS: Appearance,Urine Cloudy (Clear); Bacteria,Urine Occasional /hpf; Bilirubin,Urine 2+ (Negative); Blood,Urine Small (Negative); Color,Urine Dark Brown; Glucose,Urine (UA) Negative (Negative); Ketones,Urine Negative (Negative); Leukocyte Esterase,Urine Large (Negative); Mucus,Urine Few /hpf; Nitrite,Urine Positive (Negative); Protein,Urine 1+ (Negative); RBC,Urine 52 /hpf (0-5); Specific Gravity,Urine 1.017 (1.001-1.035); Squamous Epithelial Cell,Urine 4 /hpf (0-4); WBC,Urine >182 /hpf (0-5)
--- NOTE | 2018-06-02 03:30 | ED ---
Abdominal Pain HPI - General Chief Complaint: Abdominal Pain Stated Complaint: KIDNEY STONES Time Seen by Provider: 06/02/18 03:02 Source: patient Mode of arrival: wheelchair Limitations: no limitations - History of Present Illness Initial Comments: This patient is a 47 year old woman who presents to be evaluated for left flank pain. The patient states she has had a couple of days some mild discomfort to the left flank area. To 3 hours ago the patient states she was just sitting down relaxing, when she started to have severe left flank pain. She describes pain as being sharp, colicky, and severe intensity. It has been accompanied by nausea. She also felt hot. Patient denies any change in bowel movements. She had not noted any change in urination, other than feeling like she needs to go frequently. MD Complaint: abdominal pain Onset/Timin -: days(s) Location: L flank Radiation: LLQ Migration to: no migration Severity: severe Quality: sharp Consistency: constant Improves With: nothing Worsens With: nothing Associated Symptoms: nausea, vomiting - Related Data Home Medications Medication Instructions Recorded Confirmed Fexofenadine HCl [Love Allergy] 180 mg PO DAILY 05/07/18 05/09/18 Sulfamethox-Tmp 800-160Mg [Bactrim 1 tab PO Q12HR 05/09/18 05/09/18 DS 800-160 mg] Previous Rx's Medication Instructions Recorded Sulfamethox-Tmp 800-160Mg [Bactrim 1 each PO Q12HR #14 tab 06/02/18 Ds] Tamsulosin [Flomax] 0.4 mg PO DAILY #14 cap 06/02/18 Allergies Allergy/AdvReac Type Severity Reaction Status Date / Time Quinolones Allergy Anaphylaxis Verified 06/02/18 02:45 Review of Systems ROS Statement: Those systems with pertinent positive or pertinent negative responses have been documented in the HPI. ROS Other: All systems not noted in ROS Statement are negative. Constitutional: Denies: fever, chills Respiratory: Denies: cough, dyspnea Cardiovascular: Denies: chest pain, palpitations, edema Gastrointestinal: Reports: abdominal pain, nausea, vomiting. Denies: diarrhea, constipation, melena, hematochezia Genitourinary: Reports: frequency. Denies: dysuria, hematuria, discharge Musculoskeletal: Denies: back pain Skin: Denies: rash Neurological: Denies: headache, weakness, numbness Past Medical History Past Medical History: No Reported History Additional Past Medical History / Comment(s): Pt states she was hospitalized at [facility] 3 days ago with chest pain, hypoglycemia, constipation, hemorrhoids History of Any Multi-Drug Resistant Organisms: None Reported Past Surgical History: Appendectomy, Hysterectomy Additional Past Surgical History / Comment(s): D&C, EGD with bx Past Anesthesia/Blood Transfusion Reactions: No Reported Reaction Past Psychological History: Anxiety Smoking Status: Current every day smoker Past Alcohol Use History: Rare Past Drug Use History: None Reported - Past Family History Mother Family Medical History: Cancer Additional Family Medical History / Comment(s): Mother of pancreatic cancer at the age of 54yrs. Father Family Medical History: AFIB, Coronary Artery Disease (CAD) Additional Family Medical History / Comment(s): Father is 76yrs old. General Exam Limitations: no limitations General appearance: alert, in no apparent distress Head exam: Present: atraumatic, normocephalic Eye exam: Present: normal appearance. Absent: scleral icterus, conjunctival injection Respiratory exam: Present: normal lung sounds bilaterally. Absent: respiratory distress, wheezes, rales, rhonchi, stridor Cardiovascular Exam: Present: regular rate, normal rhythm, normal heart sounds. Absent: systolic murmur, diastolic murmur, rubs, gallop GI/Abdominal exam: Present: soft. Absent: distended, tenderness, guarding, rebound, mass, pulsatile mass, hernia Extremities exam: Present: normal inspection, normal capillary refill. Absent: pedal edema, calf tenderness Back exam: Present: normal inspection. Absent: CVA tenderness (R), CVA tenderness (L) Neurological exam: Present: alert Skin exam: Present: warm, dry, intact, normal color. Absent: rash Course Vital Signs 06/02/18 02:43 Temperature 97.8 F Pulse Rate 83 Respiratory 18 Rate Blood Pressure 114/73 O2 Sat by Pulse 95 Oximetry Medical Decision Making - Lab Data Result diagrams: 06/02/18 02:58 06/02/18 02:58 Lab Results 06/02/18 06/02/18 06/02/18 Range/Units 02:58 02:58 02:58 WBC 12.1 H (3.8-10.6) k/uL RBC 4.84 (3.80-5.40) m/uL Hgb 14.8 (11.4-16.0) gm/dL Hct 44.7 (34.0-46.0) % MCV 92.4 (80.0-100.0) fL MCH 30.6 (25.0-35.0) pg MCHC 33.1 (31.0-37.0) g/dL RDW 12.5 (11.5-15.5) % Plt Count 350 (150-450) k/uL Neutrophils % 61 % Lymphocytes % 22 % Monocytes % 9 % Eosinophils % 5 % Basophils % 1 % Neutrophils # 7.3 (1.3-7.7) k/uL Lymphocytes # 2.6 (1.0-4.8) k/uL Monocytes # 1.0 (0-1.0) k/uL Eosinophils # 0.6 (0-0.7) k/uL Basophils # 0.1 (0-0.2) k/uL Sodium 141 (137-145) mmol/L Potassium 4.0 (3.5-5.1) mmol/L Chloride 106 (98-107) mmol/L Carbon Dioxide 27 (22-30) mmol/L Anion Gap 8 mmol/L BUN 16 (7-17) mg/dL Creatinine 0.76 (0.52-1.04) mg/dL Est GFR (CKD-EPI)AfAm >90 (>60 ml/min/1.73 sqM) Est GFR (CKD-EPI)NonAf >90 (>60 ml/min/1.73 sqM) Glucose 108 H (74-99) mg/dL Calcium 9.9 (8.4-10.2) mg/dL Total Bilirubin 0.4 (0.2-1.3) mg/dL AST 19 (14-36) U/L ALT 29 (9-52) U/L Alkaline Phosphatase 76 (38-126) U/L Total Protein 7.0 (6.3-8.2) g/dL Albumin 4.3 (3.5-5.0) g/dL Amylase 50 (30-110) U/L Lipase 108 (23-300) U/L Urine Color Dark Brown Urine Appearance Cloudy H (Clear) Urine pH 6.0 (5.0-8.0) Ur Specific [place] 1.017 (1.001-1.035) Urine Protein 1+ H (Negative) Urine Glucose (UA) Negative (Negative) Urine Ketones Negative (Negative) Urine Blood Small H (Negative) Urine Nitrite Positive H (Negative) Urine Bilirubin 2+ H (Negative) Urine Urobilinogen 12.0 (<2.0) mg/dL Ur Leukocyte Esterase Large H (Negative) Urine RBC 52 H (0-5) /hpf Urine WBC >182 H (0-5) /hpf Urine WBC Clumps Few H (None) /hpf Ur Squamous Epith Cells 4 (0-4) /hpf Urine Bacteria Occasional H (None) /hpf Urine Mucus Few H (None) /hpf Disposition Clinical Impression: Calculus of kidney, Urinary tract infection Disposition: HOME SELF-CARE Condition: Good Instructions: Kidney Stones (ED), Urinary Tract Infection in Women (ED) Prescriptions: Sulfamethox-Tmp 800-160Mg [Bactrim Ds] 1 each PO Q12HR #14 tab Tamsulosin [Flomax] 0.4 mg PO DAILY #14 cap Is patient prescribed a controlled substance at d/c from ED?: No Referrals: Faye Hartmann MD [Primary Care Provider] - 1-2 days Alfredo Teixeira MD [STAFF PHYSICIAN] - 1-2 days
[2018-06-02 03:42] LABS: Basophils # (A) 0.1 k/uL (0-0.2); Basophils % (A) 1 %; Eosinophils # (A) 0.6 k/uL (0-0.7); Eosinophils % (A) 5 %; HCT 44.7 % (34.0-46.0); HGB 14.8 gm/dL (11.4-16.0); Lymphocytes # (A) 2.6 k/uL (1.0-4.8); Lymphocytes % (A) 22 %; MCH 30.6 pg (25.0-35.0); MCHC 33.1 g/dL (31.0-37.0); MCV 92.4 fL (80.0-100.0); Mean Platelet Volume 7.8; Monocytes % (A) 9 %; Neutrophils # (A) 7.3 k/uL (1.3-7.7); Neutrophils % (A) 61 %; Platelet Count 350 k/uL (150-450); RBC 4.84 m/uL (3.80-5.40); RDW 12.5 % (11.5-15.5); WBC 12.1 k/uL (3.8-10.6)
--- NOTE | 2018-06-02 04:59 | CT ---
EXAMINATION TYPE: CT abdomen pelvis wo con DATE OF EXAM: 06/02/2018 COMPARISON: None HISTORY: left flank pain CT DLP: 283.6 mGycm Automated exposure control for dose reduction was used. TECHNIQUE: Helical acquisition of images was performed from the lung bases through the pelvis. FINDINGS: Lung bases are clear. There is no pleural effusion. There is small linear density at the left lung ba se consistent with subsegmental atelectasis. There is no pericardial effusion. Heart size is normal. Stomach appears normal. Liver spleen appear normal. Bile ducts are not dilated. There is no adrenal m ass. There is left-sided hydronephrosis. The left ureter is dilated and there is a 4 mm calculus at t he left ureterovesical junction. There is no free fluid in the pelvis. I see no intestinal wall thick ening. There are no dilated loops. The right kidney shows no sign of obstruction. I see no renal calc ulus. There is no retroperitoneal adenopathy. There is no mesenteric adenopathy. I see no sign of a thickened appendix. The lumbar vertebra appear intact with normal disc spaces. The re is no compression fracture. Bony pelvis appears intact. There is no inguinal hernia. There is no s ign of pneumoperitoneum. IMPRESSION: SMALL OBSTRUCTING CALCULUS AT THE LEFT URETEROVESICAL JUNCTION WITH HYDRONEPHROSIS AND HYDROURETER.
[2018-06-02] MEDS ORDERED: TAMSULOSIN 0.4 MG CAP.ER.24H PO STA (05:05)
[2018-06-02] MEDS ORDERED: SULFAMETHOX-TMP 800-160MG 1 EACH TAB PO STA (05:19)
[2018-06-02] MEDS ORDERED: traMADol 50 MG STARTER PACK 3 TAB BTL PO STA (05:19)
[2018-06-02 05:46] VITALS: BP 98/59; PULSE 77; TEMP 97.7
== END 2018-06-02 05:44 | disposition home or self-care (01) ==
LOC: EC 02:39
DX: N13.6 Pyonephrosis (principal); F17.200 Nicotine dependence, unspecified, uncomplicated; Z79.899 Other long term (current) drug therapy; Z88.1 Allergy status to other antibiotic agents
CPT/HCPCS: 36415; 80053; 82150; 83690; 85025; 81001; 74176; 99284; 96374; 96375; J2405; J1885

== ENCOUNTER → 2018-08-12 | Outpatient (CLI) | payer BC ==
--- NOTE | 2018-08-12 10:09 | US ---
EXAMINATION TYPE: US kidneys/renal and bladder DATE OF EXAM: 08/12/2018 COMPARISON: CT 06/02/2018 CLINICAL HISTORY: R93.4Abnormal findings on diagnostic imaging of ur. History of stones EXAM MEASUREMENTS: Right Kidney: 10.1 x 3.8 x 4.3 cm Left Kidney: 9.7 x 5.2 x 4.0 cm Post Void Residual Volume: mL Right Kidney: No hydronephrosis or masses seen Left Kidney: No hydronephrosis or masses seen Bladder: wnl Bilateral Jets seen: Yes There is no evidence for hydronephrosis at this point in time. No nephrolithiasis is seen. No ventura s are identified. The urinary bladder is anechoic. Bilateral ureteral jets are seen. IMPRESSION: No hydronephrosis or nephrolithiasis sonographically. Bilateral ureteral jets are noted. The previous ly seen left hydronephrosis and hydroureter are not visualized and therefore the small left calculus has likely passed in the interim.
== END | disposition home or self-care (01) ==
LOC: RADUSWWP 08:55
PROVIDERS: ATTEND Urology
DX: R93.41 Abnormal radiologic findings on diagnostic imaging of renal pelvis, ureter, or bladder (principal)
CPT/HCPCS: 76770

== ENCOUNTER → 2018-09-11 | Outpatient (CLI) | payer BC ==
--- NOTE | 2018-09-11 14:05 | XR ---
EXAMINATION TYPE: XR KUB DATE OF EXAM: 09/11/2018 CLINICAL DATA: 48-year-old female left lower quadrant pain, history of kidney stone, [facility] COMPARISON: CT 06/02/2018 FINDINGS: Supine imaging limited for assessment of free air. Scattered [id number] stool. No dilated small bowel loops. Sclerotic focus measuring 7 mm projects over the left iliac wing and is compatible with a bone island when correlating with patient's prior CT. No definite suspicious calcification seen. IMPRESSION: No definite suspicious calcification is radiographically apparent. 7 mm bone island projects at the l eft iliac wing.
== END ==
LOC: RADXRYALE 10:55
PROVIDERS: ATTEND Urology
DX: N20.0 Calculus of kidney (principal)
CPT/HCPCS: 74018

== ENCOUNTER → 2019-01-10 | Outpatient (CLI) | payer BC ==
--- NOTE | 2019-01-10 13:36 | MM ---
Reason for exam: follow-up at short interval from prior study. Last mammogram was performed 9 months ago. History: Patient is postmenopausal and has history of other cancer at age 31. Family history of breast cancer in paternal grandmother. MG discontinued stereo core RT of the right breast, May 09, 2018. Physical Findings: Nurse did not find any significant physical abnormalities on exam. MG 3D Diag Mammo W/Cad RT CC, MLO, and spot compression MLO view(s) were taken of the right breast. Prior study comparison: April 19, 2018, right breast MG work up mamm w CAD RT. April 05, 2018, bilateral MG screening mammo w CAD. The breast tissue is heterogeneously dense. This may lower the sensitivity of mammography. The previously seen abnormality resolves on additional views and appears as fibroglandular tissue compatible with summation. No suspicious abnormality. These results were verbally communicated with the patient and result sheet given to the patient on 01/10/19. ASSESSMENT: Benign, BI-RAD 2 RECOMMENDATION: Return to routine screening mammogram schedule for both breasts. Back on schedule for March 2019.
== END | disposition home or self-care (01) ==
LOC: RADMAMWWP 12:34
PROVIDERS: ATTEND Internal Medicine
DX: R92.8 Other abnormal and inconclusive findings on diagnostic imaging of breast (principal)
CPT/HCPCS: 77061; 77065

== ENCOUNTER → 2020-01-29 | Outpatient (CLI) | payer BC | END | disposition home or self-care (01) | LOC: LABWHC1 13:50 | PROVIDERS: ATTEND Pediatrics | DX: R05 Cough (principal) ==